=== PATIENT | male | born 2000 | race Caucasian/White ===

== ENCOUNTER 2024-02-11 11:55 | Emergency (ER) | payer MEDICAID ==
[~2024-02-11] VITALS: Ht 180.3 cm; Wt 69.9 kg
[2024-02-11 12:19] VITALS: BP_SYST 134; PULSE 90; RESP 16; TEMP 98.8; O2SAT 98
[2024-02-11] MEDS ORDERED: HYDC2.5% TP (14:00)
[2024-02-11] MEDS ORDERED: PRED20TA PO (14:00)
[2024-02-11 14:27] VITALS: BP_SYST 132; PULSE 88; RESP 16; TEMP 98.6; O2SAT 98
== END 2024-02-11 14:26 | disposition home or self-care (01) ==
LOC: SED 11:55
DX: L25.9 Unspecified contact dermatitis, unspecified cause (principal)
CPT/HCPCS: 99283